=== PATIENT | male | born 1990 | race Caucasian/White ===

== ENCOUNTER 2017-08-06 19:08 | Emergency (ER) | payer OTHER ==
[2017-08-06] MEDS ORDERED: OXYCODONE/APAP 5/325 TAB PO ONE (19:26)
[2017-08-06] MEDS ORDERED: IBUPROFEN 800 MG TAB PO ONE (19:26)
--- NOTE | 2017-08-06 19:42 | EDPHY ---
H & P Time Seen by Provider: 08/06/17 19:11 HPI/ROS: CHIEF COMPLAINT: Left ankle injury HISTORY OF PRESENT ILLNESS: 27-year-old male presents to the emergency department by private vehicle with injury to the left ankle. The patient was playing basketball and jumped up and then landed wrong thinks twisting his left ankle. Complains of isolated pain to the left ankle. He denies pain in his chest or difficulty breathing. Denies abdominal pain. Denies hitting his head or losing consciousness. Unable to bear weight secondary to pain. The incident happened just prior to arrival. ROS: Denies numbness or tingling in his toes, pain in his left knee or hip. Past Medical/Surgical History: Orthopedic injuries Social History: Single Smoking Status: Current some day smoker Physical Exam: On examination the patient has obvious swelling noted both to the medial and lateral aspect of the left ankle. Diffuse tenderness with palpation both to the medial and lateral aspect of the left ankle. No palpable crepitus or other bony abnormality. Normal sensation to light touch with normal 2 point discrimination. Strong dorsalis pedis pulse on the dorsal aspect of the left foot. Difficult to assess ligament stability given his pain and swelling. His calf is nontender. His left knee is nontender. There is no abrasions overlying the left ankle or anything to suggest open fracture. Constitutional: Initial Vital Signs Temperature (C) 36.5 C 08/06/17 19:17 Heart Rate 90 08/06/17 19:17 Respiratory Rate 16 08/06/17 19:17 Blood Pressure 143/97 H 08/06/17 19:17 O2 Sat (%) 95 08/06/17 19:17 O2 Delivery Mode Room Air Allergies/Adverse Reactions: Cephalosporins Allergy (Verified 08/06/17 19:17) Home Medications: Medication Instructions Recorded NK [No Known Home Meds] 08/06/17 MDM/Departure - MDM Imaging Results: Imaging Impressions Ankle X-Ray 08/06/17 19:26 Impression: Soft tissue swelling over the lateral ankle with no fracture observed. Left Ankle (3 Views, at 7:33 PM): There is pronounced dorsal/lateral soft tissue swelling. The medial and lateral malleoli are intact, and the mortise is maintained. The talar dome is well-contoured. The subtalar joint is normal, and the talar neck is intact. There is a probable tiny curvilinear projectional anomaly along the medial talus. There is no convincing avulsion fragment. The base of the fifth metatarsal is unremarkable. The calcaneal-cuboid joint is anatomically-aligned. Impression: Pronounced soft tissue swelling seen dorsolaterally. If there is progression of the patient's symptoms, MR imaging could be scheduled. Tibia/Fibula X-Ray 08/06/17 19:26 Impression: Soft tissue swelling over the lateral ankle with no fracture observed. Left Ankle (3 Views, at 7:33 PM): There is pronounced dorsal/lateral soft tissue swelling. The medial and lateral malleoli are intact, and the mortise is maintained. The talar dome is well-contoured. The subtalar joint is normal, and the talar neck is intact. There is a probable tiny curvilinear projectional anomaly along the medial talus. There is no convincing avulsion fragment. The base of the fifth metatarsal is unremarkable. The calcaneal-cuboid joint is anatomically-aligned. Impression: Pronounced soft tissue swelling seen dorsolaterally. If there is progression of the patient's symptoms, MR imaging could be scheduled. Imaging: I viewed and interpreted images myself Procedures: The patient was placed in Ortho Glass volar in sugar-tong splint and given crutches. This was examined post application in good placement with normal [employer]. Medications Given: Discontinued Medications Ibuprofen (Motrin) 800 mg PO EDNOW ONE Stop: 08/06/17 19:27 Last Admin: 08/06/17 19:40 Dose: 800 mg Oxycodone/Acetaminophen (Percocet 5/325) 1 tab PO EDNOW ONE Stop: 08/06/17 19:27 Last Admin: 08/06/17 19:40 Dose: 1 tab ED Course/Re-evaluation: 27-year-old male presents to the emergency department with left ankle pain. X- rays reveal possible avulsion fracture off the medial aspect of the talus. Patient was placed in a splint, given crutches will be nonweightbearing. - Depart Disposition: Home, Routine, Self-Care Clinical Impression: Left ankle sprain Qualifiers: Encounter type: initial encounter Involved ligament of ankle: unspecified ligament Qualified Code(s): S93.402A - Sprain of unspecified ligament of left ankle, initial encounter Avulsion fracture of ankle Qualifiers: Encounter type: initial encounter Fracture type: closed Laterality: left Qualified Code(s): S82.892A - Other fracture of left lower leg, initial encounter for closed fracture Condition: Good Instructions: Ankle Sprain (ED), Avulsion Fracture (ED) Additional Instructions: Keep splint on until follow-up with orthopedic surgeon later this week. Ice and elevate to help relieve swelling. Ibuprofen 600 mg every 8 hr as needed for pain. You have evidence an avulsion fracture off medial side of your talus. You should use crutches and not walk on your left ankle until seen by orthopedic surgeon. Return to the emergency department if you developed increasing pain, increasing swelling, or if you feel worse in any way. Referrals: Madhavi Darling MD [Medical Doctor] - 2-3 days without fail (Orthopedic surgeon on- call)
[2017-08-06 20:13] VITALS: BP 132/72
== END 2017-08-06 20:12 | disposition home or self-care (01) ==
DX: S82.892A Other fracture of left lower leg, initial encounter for closed fracture (principal); S93.402A Sprain of unspecified ligament of left ankle, initial encounter; F17.200 Nicotine dependence, unspecified, uncomplicated; X50.9XXA Other and unspecified overexertion or strenuous movements or postures, initial encounter; Y92.310 Basketball court as the place of occurrence of the external cause; Y99.8 Other external cause status; Y93.39 Activity, other involving climbing, rappelling and jumping off